=== PATIENT | male | born 1990 | race Caucasian/White ===

== ENCOUNTER 2017-05-12 07:58 | Day surgery (SDC) | payer OTHER ==
[2017-05-12] MEDS ORDERED: LIDOCAINE 2% MDV (20MG/ML) 20ML VIAL IV ONE (16:28)
[2017-05-12] MEDS ORDERED: PROPOFOL 10 MG/ML VIAL IV ONE (16:28)
--- NOTE | 2017-05-18 13:19 | Operative Note ---
DATE OF SURGERY: 05/12/2017 OPERATION: COLONOSCOPY. PREOPERATIVE DIAGNOSIS: Hematochezia. POSTOPERATIVE DIAGNOSIS: Normal exam. PROCEDURE: After informed consent was obtained from the patient, he was placed in the left lateral decubitus position in the endoscopy suite, sedated and monitored by the department of anesthesia. Digital rectal exam was unremarkable. A well-lubricated [id number] colonoscope was inserted into the rectum and advanced to the terminal ileum. Preparation quality was good. The terminal ileum, cecum, ileocecal valve, appendiceal orifice, ascending colon, transverse colon, descending colon, sigmoid colon, and rectum were carefully inspected and were free of inflammatory changes, mass lesions, or polyp. Forward views of the rectum and J-turn view of the anorectum were unremarkable. The endoscope was straightened, the rectal ampulla deflated, and the endoscope was removed. ESTIMATED BLOOD LOSS: None. COMPLICATIONS: None apparent. SPECIMENS: None. IMPRESSION: Normal exam. RECOMMENDATIONS: At this point, it is suspicious the patient may have had an anorectal source, perhaps even internal hemorrhoids as the source for his bleeding. I would recommend a high-fiber diet. If he has recurrent bleeding, he should notify me. As always, thank you for allowing me to participate in the healthcare of your patients. CC: Dr. emir POSADAS
== END 2017-05-12 10:03 | disposition home or self-care (01) ==
LOC: HOP 07:58
PROVIDERS: ATTEND Internal Medicine Gastroenterology
DX: K92.1 Melena (principal)